=== PATIENT | male | born 1945 | race Caucasian/White ===

== ENCOUNTER 2016-09-01 12:00 | Day surgery (SDC) | payer OTHER ==
[~2016-09-01] VITALS: Ht 182.9 cm; Wt 93.0 kg
[~2016-09-01 12:00] MED LIST: ATORVASTATIN CA40 MG PO; AZILECT1 MG PO; CARBIDOPA-LEVO1 EAC5 PO; COUMADIN,JANTOVE2 MG; COZAAR100 MG; CYANOCOBALAM1000 MCG PO; FA-80.8 MG PO; HYDROCHLOROTH12.5 M3 PO; ISOPTIN SR240 M1; JOINT SUPPORT1 EACH PO; KLOR-CON M2020 MEQ PO; LEVITRA20 MG PO; LO-DOSE ASPIRIN81 M2 PO; LOSARTAN POTASS50 MG PO; LOVASTATIN40 MG PO; METOPROLOL SUCC25 MG PO; OXYCODONE5 MG; PRILOSEC20 MG PO; TESTONE CI200 MG/1 M IM; VERAPAMIL ER300 MG PO; XARELTO20 MG PO
== END 2016-09-01 15:45 | disposition home or self-care (01) ==
LOC: CATH 12:00
DX: Z45.010 Encounter for checking and testing of cardiac pacemaker pulse generator [battery] (principal); I48.91 Unspecified atrial fibrillation; I49.5 Sick sinus syndrome; G20 Parkinson's disease
CPT/HCPCS: C1786; J0690; J1200; J2250; J3010; S0020

== ENCOUNTER 2016-09-09 11:19 | Day surgery (SDC) | payer OTHER ==
[~2016-09-09] VITALS: Ht 182.9 cm; Wt 90.1 kg
[2016-09-09] MEDS ORDERED: ASPIR 8181 M1 PO (11:55)
[2016-09-09 21:00] VITALS: BP 143/85
[2016-09-09 22:14] VITALS: BP 143/85
[2016-09-09 23:55] VITALS: BP 146/86
[2016-09-10 04:00] VITALS: BP 136/78
[2016-09-10 08:17] VITALS: BP 137/79
[2016-09-10 11:17] VITALS: BP 130/68
[2016-09-10 16:32] VITALS: BP 146/80
== END 2016-09-10 19:34 | disposition home or self-care (01) ==
LOC: CATH 11:19 → 2SOUTH 19:55 → 4EAST 20:58
DX: R07.9 Chest pain, unspecified (principal); I49.5 Sick sinus syndrome; I48.91 Unspecified atrial fibrillation; R94.39 Abnormal result of other cardiovascular function study; R10.13 Epigastric pain; Z95.0 Presence of cardiac pacemaker; I71.6 Thoracoabdominal aortic aneurysm, without rupture
CPT/HCPCS: 85347; C1769; C1887; C1894; G0378; J1644; J2250; J3010

== ENCOUNTER 2016-09-17 12:22 | Emergency (ER) | payer OTHER ==
[~2016-09-17] VITALS: Ht 182.9 cm; Wt 95.3 kg
[~2016-09-17 12:22] MED LIST changes: +ASPIR 8181 M1 PO
[2016-09-17 14:14] LABS: HEMATOCRIT 43.2 % (38.0-50.0); MCV 96.9 FL (86-99); MEAN PLAT.VOLUME 10.1 uM^3 (9.0-12.4); PLATELET COUNT 184 K/uL (156-360); RBC DIS.WIDTH-CV 12.9 % (11.8-14.6); RBC DIS.WIDTH-SD 44.3 % (39-53); RED BLOOD COUNT 4.46 M/uL (4.00-5.50); WHITE BLOOD COUNT 5.9 K/uL (4.1-10.2)
[2016-09-17 14:27] LABS: CHLORIDE 106 mEq/L (99-109); POTASSIUM 4.2 mEq/L (3.7-5.4); SODIUM 141 mEq/L (136-147)
[2016-09-17 14:28] LABS: GLUCOSE 99 mg/dL (70-99)
[2016-09-17 14:30] LABS: ANION GAP 7 MEQ/L (2-14)
[2016-09-17 14:32] LABS: GFR ESTIMATE (CALCULATED) > 59 mL/min/
[2016-09-17 14:33] LABS: UREA NITROGEN (BUN) 19 mg/dL (9-23)
[2016-09-17] MEDS ORDERED: KEFLEX500 MG PO (14:39)
[2016-09-17 14:47] VITALS: BP 130/77
== END 2016-09-17 14:48 | disposition home or self-care (01) ==
LOC: EME 12:22
PROVIDERS: Nurse Practitioner Family
DX: T82.7XXA Infection and inflammatory reaction due to other cardiac and vascular devices, implants and grafts, initial encounter (principal); H57.11 Ocular pain, right eye
CPT/HCPCS: 71020; 80048; 85027; 87040; 99281; 99284

== ENCOUNTER 2017-04-07 13:35 | Emergency (ER) | payer OTHER ==
[~2017-04-07] VITALS: Ht 180.3 cm; Wt 93.2 kg
[~2017-04-07 13:35] MED LIST changes: +KEFLEX500 MG PO
[2017-04-07 15:58] LABS: EOSINOPHIL (%) 0.9 % (0-5); EOSINOPHIL COUNT 0.1 K/uL (0-0.3); HEMATOCRIT 42.6 % (38.0-50.0); IMMATURE GRANULOCYTE (%) 0.3 % (0.0-0.7); INSTRUMENT ABS NEUTROPHIL CT 5.8 K/uL; MCH 32.7 PG (29.0-34.0); MCHC 33.8 G/DL (30.0-36.0); MCV 96.8 FL (86-99); MEAN PLAT.VOLUME 10.2 uM^3 (9.0-12.4); MONOCYTE (%) 11.6 % (3-12); MONOCYTE COUNT 0.9 K/uL (0-0.8); NEUTROPHIL (%) 74.4 % (45-76); NEUTROPHIL COUNT 5.8 K/uL (1.8-6.4); PLATELET COUNT 172 K/uL (156-360); RBC DIS.WIDTH-CV 11.9 % (11.8-14.6); RBC DIS.WIDTH-SD 42.6 % (39-53); WHITE BLOOD COUNT 7.8 K/uL (4.1-10.2)
[2017-04-07 16:08] LABS: CHLORIDE 99 mEq/L (99-109); POTASSIUM 3.5 mEq/L (3.7-5.4); SODIUM 136 mEq/L (136-147)
[2017-04-07 16:10] LABS: GLUCOSE 108 mg/dL (70-99)
[2017-04-07 16:11] LABS: ANION GAP 10 MEQ/L (2-14)
[2017-04-07 16:12] LABS: TOTAL BILIRUBIN 1.4 mg/dL (0.0-1.0)
[2017-04-07 16:14] LABS: ALKALINE PHOSPHATASE 45 IU/L (3-129); GFR ESTIMATE (CALCULATED) 58 mL/min/
[2017-04-07 16:15] LABS: UREA NITROGEN (BUN) 30 mg/dL (9-23)
[2017-04-07] MEDS ORDERED: NORCO 5/3251 TABLET PO (16:55)
[2017-04-07 17:33] VITALS: BP 131/76
== END 2017-04-07 17:34 | disposition home or self-care (01) ==
LOC: EME 13:35
PROVIDERS: Emergency Medicine
DX: G89.18 Other acute postprocedural pain (principal); M25.561 Pain in right knee; I10 Essential (primary) hypertension; Z87.442 Personal history of urinary calculi; Z95.0 Presence of cardiac pacemaker; Z79.82 Long term (current) use of aspirin; Z87.891 Personal history of nicotine dependence
CPT/HCPCS: 70450; 73564; 80053; 85025; 93971; 99281; 99284